=== PATIENT | female | born 1975 | race Caucasian/White ===

== ENCOUNTER 2017-02-09 19:10 | Emergency (ER) | payer MEDICAID ==
[2017-02-09 19:33] VITALS: BP 173/98
[2017-02-09] MEDS ORDERED: traMADol 50 MG Tab PO ONE ×2 (19:41→19:44)
--- NOTE | 2017-02-09 19:43 | EDM.PDOC ---
ED HPI GENERAL MEDICAL PROBLEM - General Chief Complaint: Chest Pain Stated Complaint: RIB PAIN Time Seen by Provider: 02/09/17 19:25 Source of Information: Reports: Patient History Limitations: Reports: No limitations - History of Present Illness INITIAL COMMENTS - FREE TEXT/NARRATIVE: Sailaja reports R anterior chest pain and tenderness over the past 8-9 days. Sxs occurred after she leaned over an arm rest and felt something "pop" adjacent to R margin of sternum. Pain is worse with cough, sneeze, turning, reaching, and straining. Sxs improve with rest. There are no sxs of dyspnea, palpitations, cough or wheezing. She has been managing with Tylenol, but sxs persist and prevented her from going to work this pm. 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 - Related Data Allergies Allergy/AdvReac Type Severity Reaction Status Date / Time NSAIDS (Non-Steroidal Allergy Rash Verified 02/09/17 19:40 Anti-Inflamma Home Meds: Home Meds NK [No Known Home Meds] 02/09/17 [History] Past Medical History Respiratory History: Reports: Other (see below) (chest wall pain on R side x 3 past episodes since 1999) Gastrointestinal History: Reports: Other (see below) (bariatric surgery) Hematologic History: Reports: Anemia, Iron deficiency ED ROS GENERAL - Review of Systems Review Of Systems: See Below Constitutional: Reports: malaise HEENT: Reports: No symptoms Respiratory: Reports: No Symptoms Cardiovascular: Reports: Chest pain Endocrine: Reports: no symptoms GI/Abdominal: Reports: No symptoms : Reports: no symptoms Musculoskeletal: Reports: other (anterior R sided chest pain worse with movements) Skin: Reports: no symptoms Neurological: Reports: No Symptoms Psychiatric: Reports: No symptoms Hematologic/Lymphatic: Reports: no symptoms Immunologic: Reports: no symptoms ED EXAM, GENERAL - Physical Exam Exam: See Below Exam Limited By: No limitations General Appearance: alert, WD/WN, mild distress Ears: normal external exam Nose: normal inspection Throat/Mouth: Normal inspection, Normal lips, Normal oropharynx, Normal voice Head: atraumatic, normocephalic Neck: normal inspection, supple, non-tender, full range of motion Respiratory/Chest: no respiratory distress, lungs clear, normal breath sounds, other (R anterior chest tenderness at articulation of ribs #5 and #6 with sternum; no swelling; no echymoses) Cardiovascular: normal peripheral pulses, regular rate, rhythm, no edema, no gallop, no murmur GI/Abdominal: normal bowel sounds, soft, non tender, no organomegaly, no distention, no mass Rectal (Female) Exam: Deferred Back Exam: normal inspection Extremities: normal inspection, normal range of motion, non-tender, normal capillary refill Neurological: alert, oriented, CN II-XII intact, normal cognition, normal gait, no motor/sensory deficits Psychiatric: normal affect, normal mood Skin Exam: Warm, Dry, Intact, Normal color, No rash Lymphatic: no adenopathy Course - Vital Signs Text/Narrative:: Sailaja remained stable at the [facility] ED. I dispensed Tramadol 50 mg po prior to discharge. Last Recorded V/S: Last Vital Signs Temp 36.4 C 02/09/17 19:15 Pulse 113 H 02/09/17 19:15 Resp 18 02/09/17 19:15 BP 173/98 H 02/09/17 19:15 Pulse Ox 100 02/09/17 19:15 Departure - Departure Time of Disposition: 19:45 Disposition: Home, Self-Care 01 Condition: fair Clinical Impression: Sprain, ribs Qualifiers: Encounter type: initial encounter Qualified Code(s): S23.41XA - Sprain of ribs , initial encounter - Problem List & Annotations (1) Sprain, ribs SNOMED Code(s): 299171411 Code(s): S23.41XA - SPRAIN OF RIBS, INITIAL ENCOUNTER Status: Acute Current Visit: Yes Annotation/Comment:: Simple sprained ribs #5 and #6, managed with rest, Tramadol, and follow up with PCP if needed. Qualifiers: Encounter type: initial encounter Qualified Code(s): S23.41XA - Sprain of ribs, initial encounter - Problem List Review Problem List Initiated/Reviewed/Updated: Yes - Assessment/Plan Plan: Follow up with PCP if needed.
== END 2017-02-09 20:17 | disposition home or self-care (01) ==
LOC: FB.ED 19:10
DX: S23.41XA Sprain of ribs, initial encounter (principal); Z98.84 Bariatric surgery status; Z88.8 Allergy status to other drugs, medicaments and biological substances; Z86.2 Personal history of diseases of the blood and blood-forming organs and certain disorders involving the immune mechanism; X50.9XXA Other and unspecified overexertion or strenuous movements or postures, initial encounter
CPT/HCPCS: 99282; A9270

== ENCOUNTER 2017-02-15 19:57 | Emergency (ER) | payer MEDICAID ==
[2017-02-15] MEDS ORDERED: traMADol 50 MG Tab PO ONE (20:52)
[2017-02-15 21:15] VITALS: BP 139/95
--- NOTE | 2017-02-16 01:50 | ER ---
DATE SEEN: 02/15/2017 TIME SEEN: 2044 hours. CHIEF COMPLAINT: Pain, left rib. HISTORY OF PRESENT ILLNESS: A 42-year-old female who leaned over the car console and felt a snap in the left rib cage. She has been complaining of pain since with sharp pain with no radiation. Any movement makes it worse, severe. No shortness of breath. No cough. REVIEW OF SYSTEMS: No fever or headache. No chest pain except the rib cage. ALLERGIES: NSAIDs causes rash. PAST SURGICAL HISTORY: Gastric bypass. PHYSICAL EXAMINATION: VITAL SIGNS: Blood pressure is normal, pulse 104, temperature 97.4. HEAD: Normal size. NECK: No signs of trauma. CHEST: There is tenderness in the left rib cage and left upper quadrant of the abdomen. LUNGS: Clear. CARDIOVASCULAR: Normal. MENTAL STATUS: Alert. LABORATORY DATA: None. X-ray; left rib cage x-ray did not show any overt fracture that I could see. Lung juarez appear to be clear. IMPRESSION: Rib cage pain, left side. PLAN: Tramadol 15 mg three times a day. I advised the patient to be seen tomorrow by a PCP. /[id number] ZOYA/FRANCHESKA
--- NOTE | 2017-02-16 11:22 | CR ---
INDICATION: Left rib pain. No trauma history. LEFT RIBS WITH CHEST: CHEST: PA view of the chest 02/15/2017 revealed the heart to be normal in size and shape. The aorta is minimally tortuous. A mild dextroconvex scoliosis at the lower thoracic spine is noted. Nipple shadows are noted at the lung bases, more prominently on the right. A definite active infiltrate, effusion, or contusion was not identified. IMPRESSION: No acute process. LEFT RIBS: Three views of the left ribs were obtained and revealed a BB overlying the lowermost lateral ribs, showing the site of left rib pain. Slightly distended loops of descending colon are noted at the splenic flexure of questionable etiology. There is at least one air-fluid level associated in that area. If an obstructive process is suspected clinically, additional workup may be warranted. However, the appearance more likely is on the basis of paralysis due to pain. A fracture site is noted at the tip of the 9th left rib, 1 cm from its lateral anterior end with 1 mm offset laterally of the distal fracture fragment. No other bony abnormality was identified. IMPRESSION: Minimal deformity at the tip of the 9th rib with slightly oblique fracture site. Report was called to [facility] in the ER for Dr. Go at 1049 hours, 2016. ALBARO
== END 2017-02-15 21:10 | disposition home or self-care (01) ==
LOC: FB.ED 19:57
DX: R07.81 Pleurodynia (principal); Z88.8 Allergy status to other drugs, medicaments and biological substances; Z98.84 Bariatric surgery status
CPT/HCPCS: 71101; 99283; A9270